=== PATIENT | female | born 2000 | race Caucasian/White ===

== ENCOUNTER 2020-10-10 16:26 | Emergency (ER) | payer SELFPAY ==
[2020-10-10 16:38] VITALS: BP 108/61; PULSE 87; RESP 18; TEMP 36.3; O2SAT 98; BMI 23.1
[2020-10-10 16:45] VITALS: BP 108/61; PULSE 84; RESP 16; O2SAT 99
--- NOTE | 2020-10-10 17:12 | W.ED.WOUNDLC ---
HPI - Wound/Laceration General: Chief Complaint: Wound/Laceration Stated Complaint: R FINGER LACERATION Time Seen by Provider: 10/10/20 17:11 History of Present Illness: HPI narrative: Patient comes in today for injury to the right index finger that occurred today. Patient was moving her burn barrel and cut the volar side of the middle phalanx of the right index finger. Patient has normal range of motion and normal sensation. Patient appears well. Patient reports her tetanus shot is up-to-date. Review of Systems General: Reports: 10 or more systems reviewed and unremarkable except in HPI and below Skin/Breast: Reports: other (Finger laceration) Physical Exam Const: COMMON NORMALS: no acute distress and patient oriented x3 GENERAL APPEARANCE: cooperative HENMT: COMMON NORMALS: normocephalic and Normal external nose present HEAD & SCALP: normal to inspection and normocephalic NOSE: Normal external nose present Eye: GENERAL EYE: appearance normal, both eyes and all related structures Neck/C-Spine: COMMON NORMALS: full ROM Chest: COMMONS NORMALS: normal inspection of the chest Resp: COMMON NORMALS: normal respiratory effort EFFORT & INSPECTION: Yes able to speak in complete sentences Cardio: COMMON NORMALS: regular rate and regular rhythm RATE: regular rate RHYTHM: regular rhythm GI: COMMON NORMALS: non-tender Extremity: COMMON NORMALS: normal to inspection Neuro: COMMON NORMALS: patient oriented x3 and moves all extremities Psych: COMMON NORMALS: mental status grossly normal and cooperative Skin: NARRATIVE SKIN EXAM: Right index finger laceration 2 cm. Procedures Laceration Laceration 1: Site: hand Side (If applicable): right Size (cm): 2 Description: linear Depth: simple, single layer Pre-repair: wound explored Skin layer closed with: other (Skin adhesive) Course Vital Signs: Vital signs: Vital Signs Temperature 97.3 F L 10/10/20 16:38 Pulse Rate 84 10/10/20 16:45 Respiratory Rate 16 10/10/20 16:45 Blood Pressure 108/61 10/10/20 16:45 Pulse Oximetry 99 10/10/20 16:45 MDM - Wound/Laceration MDM Narrative: Medical decision making narrative: Patient comes in for superficial laceration to the right index finger. There is a superficial 2 cm laceration to the right index finger. On exam patient has good range of motion of the finger without any signs of nerve or vascular damage. Differential diagnosis includes tendon injury, neurovascular injury, laceration to the finger. No signs of serious injury was noted. Wound was cleaned with water and then covered with skin adhesive for protection. Patient will had dressing applied for splinting of the wound. Reviewed post procedure care and need for follow-up. Patient reported understanding. Discharge Plan Discharge Patient Disposition: Home Clinical Impression: Laceration of finger Qualifiers: Encounter type: initial encounter Finger: index finger Damage to nail status: without damage Foreign body presence: without foreign body Laterality: right Qualified Code(s): S61.210A - Laceration without foreign body of right index finger without damage to nail, initial encounter Condition: Stable Prescriptions: No Action No Known Home Medications RF: 0 Discharge Orders: Discharge ED (Routine); Ordered 10/10/20 Ordered By: Rustam Hawkins Discharge Diet: Usual diet Discharge Activity: Increase activity as tolerated Patient Instructions: Skin Adhesive Care (ED), Opioid Safety Activity Restrictions/Additional Instructions: Home and rest. Keep dressing over the wound for the next 3 to 5 days. Keep it clean and dry. Cover with a glove when washing or risk of getting wet. Follow-up with primary care as needed. Return to the ER for new concerns. Monitor for signs of infection such as increased redness, pain, fever. Coding Level of Care Code ED [employer] for [employer] Exam Comprehensive
[2020-10-10 17:50] VITALS: BP 109/59; PULSE 70; RESP 18; O2SAT 98
== END 2020-10-10 17:55 | disposition home or self-care (01) ==
PROVIDERS: Emergency Provider Nurse Practitioner Family
DX: S61.210A Laceration without foreign body of right index finger without damage to nail, initial encounter (principal); W26.8XXA Contact with other sharp object(s), not elsewhere classified, initial encounter
CPT/HCPCS: 12001; 99282